=== PATIENT | female | born 2000 | race Caucasian/White ===

== ENCOUNTER 2023-02-25 13:33 | Outpatient (CLI) | payer OTHER, SELFPAY | END 2023-02-25 13:34 | disposition home or self-care (01) | PROVIDERS: PCP Family Medicine; Visit Provider Family Medicine | DX: Z00.00 Encounter for general adult medical examination without abnormal findings (principal); Z11.3 Encounter for screening for infections with a predominantly sexual mode of transmission | CPT/HCPCS: 87491; 87591 ==

== ENCOUNTER 2024-02-29 10:32 | Outpatient (CLI) | payer OTHER, SELFPAY ==
--- OUTSIDE RECORDS SUMMARY | 2024-02-29 10:37 | XMS_ITS | Clinical Summary ---
Author Organization [facility] Address [address], [place] [address] Care Team Providers Care Stack Matcher Name Role Phone Found, No Pcp MD Primary Care Provider Unavailab le Source Comments You are receiving this document as you are listed as the primary care provider,follow-up provider, or the patient has been referred to you for consultation.This is in compliance with the Medicare andMedicaid EHR Incentive Program,which states Providers who transition their patient to another setting of careor provider of care or refers their patient to another provider of care shouldprovide summary care record for each transition of care or referral. [facility] Allergies No known active allergies Medications Medication Sig Dispensed Refills Start Date End Date Status drospirenone-ethinyl estradiol (KALEIGH) 3-0.03 MG tablet 03/10/2021 Active meloxicam (MOBIC) 7.5 MG tabletIndications:Ach illes tendinitis of left lower extremity TAKE 1 TABLET BY MOUTH DAILY 30 Tablet 05/15/2021 Active Social History Tobacco Use Types Packs/Day Years Used Date Smoking Tobacco: Never Assessed Sex and Gender Information Value Date Recorded Sex Assigned at Not on file Gender Identity Not on file Sexual Orientation Not on file Last Filed Vital Signs Vital Sign Reading Time Taken Comments Blood Pressure - - Pulse - - Temperature 36.7 ??C (98 ??F) 04/05/2021 3:28 PM CDT Respiratory Rate - - Oxygen Saturation - - Inhaled Oxygen Concentration - - Weight 54.4 kg (120 lb) 04/05/2021 3:28 PM CDT Height 162.6 cm (5' 4) 04/05/2021 3:28 PM CDT Body Mass Index 20.6 04/05/2021 3:28 PM CDT Plan of Treatment Health Maintenance Due Date Last Done Comments Cervical Cancer Screening Due 1999 Chlamydia 1999 Hep C Screening (Preventive Services) 1999 HepA (2 of 2 - 2-dose series) 10/31/2007 05/02/2007, 1999 HIV Screening (Preventive Services) 2015 Adult Preventive Visit 2017 HepB (1) 2018 DTaP/Tdap/Td (7 - Tdap) 12/13/2021 12/14/19 12, 05/02/2004, 07/28/2000, Additional history exists COVID-19 Vaccine ( season) 2023 12/06/2020, 11/15/2020 Influenza (#1) 2024 05/01/2020, 05/17, 05/25/2018, Additional history exists Zoster/Shingles (1 of 2) 2049 Hib Completed 07/28/2000, 10/14, 1999, Additional history exists IPV (Polio) Completed 05/02/2004, 10/14, 02/25/2000, Additional history exists HPV Vaccine Completed 01/25/2018, 10/14, 03/23/2016 MCV4 Completed 01/25/2018 Pneumococcal Aged Out No longer eligi ble based on patient's age to complete this topic Care Teams Stack Matcher Relationship Specialty Start Date End Date Found, No Pcp, [address] [place] [address] PCP - General 11/28/21
--- OUTSIDE RECORDS SUMMARY | 2024-02-29 10:38 | XMS_ITS | Clinical Summary ---
Author Organization [facility] Address [place], [place] [address] Care Team Providers Care Educational Institution Curator Name Role Phone Pcp, No Primary Care Provider Unavailabl e Allergies No known active allergies Medications Medication Sig Dispensed Refills Start Date End Date Status naproxen (NAPROSYN) 500 mg tabletIndications:Ach illes tendinitis of left lower extremity Take 1 tablet by mouth every 12 hours if needed. 28 tablet 05/26/2018 Active VENTOLIN HFA 90 mcg/actuation inhaler 12/21/2019 Act mikhail drospirenone-ethinyl estradioL (KALEIGH) 3-0.03 mg tablet 03/10/2021 Active meloxicam (MOBIC) 7.5 mg tablet 05/15/2021 Active durable medical equipment (DME)Indications:Righ t wrist injury, initial encounter [employer] Comfort Form Wrist/thumb, Right, XS [id number] Length of Use: 99 months 0 05/28/2021 Active Active Problems No known active problems Social History Tobacco Use Types Packs/Day Years Used Date Smoking Tobacco: Never Smokeless Tobacco: Never Tobacco Cessation:Counseling Given: Yes Alcohol Use Standard Drinks/Week Comments No 0 (1 standard drink = 0.6 oz pur e alcohol) Social Connections Answer Date Recorded Frequency of Communication with Friends and Fami ly Not on file 08/16/2021 Financial Resource Strain Answer Date R ecorded Difficulty of Paying Living Expenses Not on file 08/16/2021 Difficulty of Paying Living Expenses Not on file 08/16/2021 Sex and Gender Information Value Date Recorded Sex Assigned at Not on file Gender Identity Not on file Sexual Orientation Not on file Obstetrics History Last Filed Vital Signs Vital Sign Reading Time Taken Comments Blood Pressure 125/78 05/26/2021 3:13 PM CDT Pulse 70 05/26/2021 3:13 PM CDT Temperature 37.2 ??C (98.9 ??F) 05/26/2021 3:13 PM CD T Respiratory Rate 14 06/26/2019 2:37 PM SALES FLOOR TEAM MEMBER Oxygen Saturation 98% 05/26/2021 3:13 PM CDT Inhaled Oxygen Concentration - - Weight 54.8 kg (120 lb 12.8 oz) 020 11:24 AM CDT Height 162 cm (5' 3.78) 03/28/2020 11: 24 AM CDT Body Mass Index 20.88 03/28/2020 11:24 AM CDT Plan of Treatment Health Maintenance Due Date Last Done Comments Tdap 2010 Depression screening for age 12+ 2011 HIV for age 15-65 2014 HPV series for age 9-26 (1 - 3-dose series) 2014 Chlamydia for age 16-24 2015 Hepatitis C screening for ag e 18-79 2017 Tetanus booster 2019 BMI (ht and wt on same day) for age 18+ 03/28/2021 03/28/2020, 05/26/2018 COVID-19 vaccine series ( season) 2023 12/06/2020, 11/15/2020 Pap test for age 21-65 01/09/2024 01/08/2021 Influenza for age 9-49 04/16/2024 Pneumococcal series for age 6-64 Aged Out No longer eligible b ased on patient's age to complete this topic Procedures Procedure Name Priority Date/Time Associated Diagnosis Comments COMPETITIVE ATHLETE THIN PREP PAP SCREEN IMAGED Routine 01/08/2021 12:00 PM CDT from Last 3 Months or Most Recently Relevant to Health Maintenance Results * COMPETITIVE ATHLETE THIN PREP PAP SCREEN IMAGED (01/08/2021 12:00 PM CDT) Case Report Gynecologic Cytology Report ? Case: [id number] ? Authorizing Provider: ??Jyotsna Ness MD ??Collected: ? 01/08/2021 1200 ? Ordering Location: ? [facility] ?Received: ?01/09/2021 1017 ? First Screen: ?Nic Ruelas ? Specimen: ?COMPETITIVE ATHLETE ThinPrep Vial Screening, Cervical/Vaginal ? 01/17/2021 12:50 PM CDT [facility] INTERPRETATION/ RESULT NEGATIVE FOR INTRAEPITHELIAL LESION OR MALIGNANCY (NIL) (none) 01/17/2021 12:50 PM CDT [facility] IMEN ADEQUACY Satisfactory for evaluation No endocervical component seen 01/17/2021 12:50 PM CDT [facility] HPV REQUEST HPV if ASCUS 01/17/2021 12:50 PM CDT [facility] Additional Information 01/17/2021 12:50 PM CDT [facility] Comment: Interpreted at [facility], Central Laboratory - [address], [place] [address] Automated Review Successful 01/17/2021 12:50 PM CDT [facility] Comment:Specimen processed s uccessfully by automated electronics engineering technologist device, ThinPrep Imaging System, [employer] Note The pap test is a screening technique, not a diagnostic procedure. It is used primarily to screen for squamous cancers and precursor lesions. Published studies have shown that it is subject to both false negative and false positive results. The pap test should not be used as the sole means to diagnose or exclude pre-malignant and malignant lesions. 01/17/2021 12:50 PM CDT [facility] Other (Cervical/Vagina l) 01/08/2021 12:00 PM CDT 01/09/2021 10:17 AM CDT Jyotsna Ness MD PATHOLOGY/CYTOLO GY [facility] [address] [place] [address], [place] from Last 3 Months or Most Recently Relevant to Health Maintenance Care Teams Educational Institution Curator Relationship Specialty Start Date End Date Pcp, No . PCP - General 05/23/16
[2024-02-29 13:26] LABS: Chlamydia DNA Amplified* NOT DETECTED (No Detected); GC DNA Amplified* NOT DETECTED (No Detected)
== END 2024-02-29 10:33 | disposition home or self-care (01) ==
PROVIDERS: PCP Family Medicine; Visit Provider Family Medicine
DX: Z00.00 Encounter for general adult medical examination without abnormal findings (principal); Z11.3 Encounter for screening for infections with a predominantly sexual mode of transmission; Z13.6 Encounter for screening for cardiovascular disorders; Z13.1 Encounter for screening for diabetes mellitus
CPT/HCPCS: 80061; 82947; 87491; 87591

== ENCOUNTER 2024-03-29 15:01 | Outpatient (CLI) | payer OTHER, SELFPAY ==
--- OUTSIDE RECORDS SUMMARY | 2024-03-30 09:08 | XMS_ITS | Clinical Summary ---
Author Organization [facility] Address [place], [place] [address] Care Team Providers Care Sign Builder Supervisor Name Role Phone Pcp, No Primary Care [...] encounter Pro[employer] Comfort Form Wrist/thumb, Right, XS [id number] Length of Use: 99 months 0 05/28/2021 [...] T Respiratory Rate 14 06/26/2019 2:37 PM CERTIFICATION OFFICER Oxygen Saturation 98% 05/26/2021 3:13 PM CDT [...] Procedure Name Priority Date/Time Associated Diagnosis Comments STITCH BONDING MACHINE TENDER THIN PREP PAP SCREEN IMAGED Routine 01/08/2021 12:00 PM CDT from Last 3 Months or Most Recently Relevant to Health Maintenance Results * STITCH BONDING MACHINE TENDER THIN PREP PAP SCREEN IMAGED (01/08/2021 12:00 PM CDT) Case Report Gynecologic Cytology Report ? Case: [id number] ? Authorizing Provider: ??Jyotsna Ness MD ??Collected: ? 01/08/2021 1200 ? Ordering Location: ? [facility] ?Received: ?01/09/2021 1017 ? First Screen: ?Nic Ruelas ? Specimen: ?STITCH BONDING MACHINE TENDER ThinPrep Vial Screening, Cervical/Vaginal ? 01/17/2021 12:50 PM CDT [facility] INTERPRETATION/ RESULT NEGATIVE FOR INTRAEPITHELIAL LESION OR MALIGNANCY (NIL) (none) 01/17/2021 12:50 PM CDT [facility] IMEN ADEQUACY Satisfactory for evaluation No endocervical component seen 01/17/2021 12:50 PM CDT [facility] HPV REQUEST HPV if ASCUS 01/17/2021 12:50 PM CDT [facility] Additional Information 01/17/2021 12:50 PM CDT [facility] Comment: Interpreted at [facility], Central Laboratory - [address], [place] [address] Automated Review Successful 01/17/2021 12:50 PM CDT [facility] Comment:Specimen processed s uccessfully by automated research quality assurance analyst device, ThinPrep Imaging System, [employer] Note The pap test is a [...] and malignant lesions. 01/17/2021 12:50 PM CDT [facility] Other (Cervical/Vagina l) 01/08/2021 12:00 PM CDT 01/09/2021 10:17 AM CDT Jyotsna Ness MD PATHOLOGY/CYTOLO GY [employer] [facility] [address] [place] [address], [place] from Last 3 Months or Most Recently Relevant to Health Maintenance Care Teams Sign Builder Supervisor Relationship Specialty Start Date End Date Pcp, No . PCP - General 05/23/16
--- OUTSIDE RECORDS SUMMARY | 2024-03-30 09:08 | XMS_ITS | Clinical Summary ---
Author Organization [facility] Address [address], [place] [address] Care Team Providers Care Arrt Technologist Name Role Phone Found, No Pcp MD [...] for each transition of care or referral. [facility] Allergies No known active allergies Medications Medication [...] age to complete this topic Care Teams Arrt Technologist Relationship Specialty Start Date End Date Found, No Pcp, [address] [place] [address] PCP - General 11/28/21
== END 2024-03-29 15:02 | disposition home or self-care (01) ==
LOC: NFLDREF 03-30 09:07
PROVIDERS: PCP Family Medicine; Referring Provider Family Medicine; Visit Provider Family Medicine
DX: Z13.9 Encounter for screening, unspecified (principal); Z11.1 Encounter for screening for respiratory tuberculosis
CPT/HCPCS: 86480; 86706

== ENCOUNTER 2025-02-13 13:09 | Outpatient (CLI) | payer BC, SELFPAY | END 2025-02-13 13:10 | disposition home or self-care (01) | PROVIDERS: PCP Family Medicine; Visit Provider Family Medicine | DX: E78.5 Hyperlipidemia, unspecified (principal); F41.9 Anxiety disorder, unspecified; R53.83 Other fatigue | CPT/HCPCS: 80053; 80061; 82248; 84443 ==